=== PATIENT | male | born 1960 | race Two or more races ===

== ENCOUNTER 2020-09-11 14:34 | Inpatient (IN) | payer MEDICARE, OTHER ==
[~2020-09-11] VITALS: Ht 180.3 cm; Wt 86.4 kg
[2020-09-11] MEDS ORDERED: LORazepam 2MG/ML-1ML VIAL ONE (15:15)
[2020-09-11] MEDS ORDERED: SODIUM CHLORIDE 0.9% 1,000 ML IVB ONE (15:30)
[2020-09-11 17:01] LABS: Basophils # (auto) 0 10 ^3/uL (0-0.2); Basophils % (auto) 0.3 % (0.0-2.0); Eosinophils # (auto) 0 10 ^3/uL (0-0.8); Hematocrit 42.6 % (41.0-53.0); Hemoglobin 14.8 g/dL (13.5-17.5); Lymphocytes # (auto) 0.7 10 ^3/uL (0.4-5.4); Lymphocytes % (auto) 11.7 % (10.0-50.0); Mean Corpuscular Hemoglobin 32.1 pg (28.0-32.0); Mean Corpuscular Hgb Conc. 34.7 g/dL (32.0-36.0); Mean Corpuscular Volume 92.4 fL (80.0-100.0); Monocytes # (auto) 0.4 10 ^3/uL (0-1.3); Monocytes % (auto) 6.6 % (0.0-12.0); Neutrophils # (auto) 4.7 10 ^3/uL (1.6-8.6); Neutrophils % (auto) 81.4 % (37.0-80.0); Nucleated Red Blood Cells % 0.1 %; Platelet Count (auto) 121 10^3/uL (140-450); Red Blood Cells 4.61 10^6/uL (4.5-5.90); Red Cell Distribution Width 12.2 % (11.8-14.3); White Blood Cell 5.8 10^3/uL (4.4-10.8)
[2020-09-11 17:15] LABS: INR 0.96 (0.9-1.15); Partial Thromboplastin Time 29.6 sec (23.0-31.2)
[2020-09-11] MEDS ORDERED: ACETAMINOPHEN 500 MG TAB PO ONE (17:18)
[2020-09-11 17:21] LABS: Calcium 8.5 mg/dL (8.5-10.1); Chloride 105 mmol/L (98-107); Potassium 3.9 mmol/L (3.5-5.1); Sodium 137 mmol/L (136-145)
[2020-09-11 17:38] LABS: Alanine Aminotransferase 35 U/L (16-61); Albumin 3.8 g/dL (3.4-5.0); Alkaline Phosphatase 107 U/L (45-117); Anion Gap 4 (5-15); Aspartate Aminotransferase 29 U/L (15-37); BUN/Creatinine Ratio 8.1; Bilirubin, Total 0.9 mg/dL (0.2-1.0); Blood Urea Nitrogen 10 mg/dL (7-18); Carbon Dioxide 28 mmol/L (21-32); GFR African American 77 mL/min; GFR Non-African American 64 mL/min; Glucose 142 mg/dL (74-106); Total Protein 8.1 g/dL (6.4-8.2)
[2020-09-11] MEDS ORDERED: ONDANSETRON HCL 4 MG/2 ML VIAL ONE (18:42)
[2020-09-11] MEDS ORDERED: ONDANSETRON HCL 4 MG/2 ML VIAL IV PRN (19:30)
[2020-09-11] MEDS ORDERED: NITROGLYCERIN 0.4 MG SL TAB SL PRN (19:30)
[2020-09-11] MEDS ORDERED: LORazepam 2MG/ML-1ML VIAL IV PRN (19:30)
[2020-09-11] MEDS ORDERED: MORPHINE SULF INJ 2 MG/ML SYRINGE 1ML IV PRN (19:30)
[2020-09-11 20:46] LABS: CRP High Sensitivity 1.05 mg/dL (< 0.3)
[2020-09-11] MEDS: ACETAMINOPHEN 325 MG TAB PO PRN (20:51)
[2020-09-11 21:18] VITALS: BP 117/79
[2020-09-11] MEDS: ENOXAPARIN SOD 40 MG/0.4 ML SYRINGE SC SCH (22:36)
[2020-09-11 22:48] LABS: Amphetamine Screen, Urine NEGATIVE (NEGATIVE); Barbiturate Scree,Urine NEGATIVE (NEGATIVE); Benzodiazephine Screen, Urine NEGATIVE (NEGATIVE); Cannabinoid Screen, Urine NEGATIVE (NEGATIVE); Cocaine Screen, Urine NEGATIVE (NEGATIVE); Opiate Scree,Urine NEGATIVE (NEGATIVE); Phencyclidine Screen, Urine NEGATIVE (NEGATIVE)
[2020-09-11 23:01] LABS: Urine Bacteria FEW /hpf (None Seen); Urine Blood TRACE /uL (Negative); Urine Specific Gravity 1.007 (1.001-1.035); Urine WBC 1 /hpf (0 - 3)
[2020-09-11] MEDS ORDERED: DEXT1SYP9 PO (23:03)
[2020-09-11] MEDS ORDERED: CHOL20007 PO (23:03)
[2020-09-11] MEDS ORDERED: ZINC220C8 PO (23:03)
[2020-09-12] MEDS: ACETAMINOPHEN 325 MG TAB PO PRN (04:48)
[2020-09-12 08:00] VITALS: BP 118/83
[2020-09-12] MEDS ORDERED: IVERMECTIN 3 MG TAB PO ONE (10:00)
[2020-09-12] MEDS: ENOXAPARIN SOD 40 MG/0.4 ML SYRINGE SC SCH ×2 (11:18→21:55)
[2020-09-12] MEDS: FAMOTIDINE 20 MG TAB PO SCH (11:18)
[2020-09-12] MEDS: CHOLECALCIFEROL (VITD3) 2,000 UNIT CAP PO SCH (11:19)
[2020-09-12] MEDS: ASCORBIC ACID 1,000 MG TAB PO SCH (11:19)
[2020-09-12] MEDS: ZINC SULFATE 220mg CAP or TAB PO SCH (11:19)
[2020-09-12] MEDS ORDERED: REMDESIVIR PER PHARMACY 0 ML IV SCH (14:15)
[2020-09-12] MEDS ORDERED: DexAMETHasone SOD PHOS 10MG/1ML VIAL INJ IV ONE (14:15)
[2020-09-12 16:00] VITALS: BP 113/79
[2020-09-12] MEDS ORDERED: REMDESIVIR 200 MG in NS 210ml LOADING DOSE ADULT IV ONE (18:00)
[2020-09-12] MEDS ORDERED: BUDESONIDE (INHALATION) 0.5 MG/2 ML NEB NEB SCH (22:00)
[2020-09-13] VITALS: BP 118/79
[2020-09-13] MEDS: BUDESONIDE (INHALATION) 180 MCG IH IN SCH ×2 (01:15→10:00)
[2020-09-13 06:38] LABS: Basophils # (auto) 0 10 ^3/uL (0-0.2); Basophils % (auto) 0.1 % (0.0-2.0); Eosinophils # (auto) 0 10 ^3/uL (0-0.8); Hematocrit 39.9 % (41.0-53.0); Hemoglobin 13.8 g/dL (13.5-17.5); Lymphocytes # (auto) 0.7 10 ^3/uL (0.4-5.4); Lymphocytes % (auto) 5.2 % (10.0-50.0); Mean Corpuscular Hemoglobin 32.3 pg (28.0-32.0); Mean Corpuscular Hgb Conc. 34.5 g/dL (32.0-36.0); Mean Corpuscular Volume 93.7 fL (80.0-100.0); Monocytes # (auto) 0.4 10 ^3/uL (0-1.3); Monocytes % (auto) 2.8 % (0.0-12.0); Neutrophils % (auto) 91.9 % (37.0-80.0); Platelet Count (auto) 137 10^3/uL (140-450); Red Blood Cells 4.25 10^6/uL (4.5-5.90); Red Cell Distribution Width 12.5 % (11.8-14.3); White Blood Cell 14.1 10^3/uL (4.4-10.8)
[2020-09-13 06:58] LABS: Albumin 2.9 g/dL (3.4-5.0); Potassium 4.6 mmol/L (3.5-5.1)
[2020-09-13 07:07] LABS: BUN/Creatinine Ratio 12.4; Bilirubin, Total 0.8 mg/dL (0.2-1.0); Calcium 8.6 mg/dL (8.5-10.1); Total Protein 7.5 g/dL (6.4-8.2)
[2020-09-13 07:30] VITALS: BP 116/71
[2020-09-13] MEDS: DexAMETHasone SOD PHOS 10MG/1ML VIAL INJ IV SCH (10:57)
[2020-09-13] MEDS: FAMOTIDINE 20 MG TAB PO SCH (10:58)
[2020-09-13] MEDS: CHOLECALCIFEROL (VITD3) 2,000 UNIT CAP PO SCH (10:58)
[2020-09-13] MEDS: ASCORBIC ACID 1,000 MG TAB PO SCH (10:58)
[2020-09-13] MEDS: ZINC SULFATE 220mg CAP or TAB PO SCH (11:03)
[2020-09-13] MEDS: ENOXAPARIN SOD 40 MG/0.4 ML SYRINGE SC SCH ×2 (11:06→22:05)
[2020-09-13] MEDS ORDERED: DEXTROSE (50%) 50ML SYRG IV PRN (13:45)
[2020-09-13] MEDS: ACCU-CHEK COMFORT CURVE STRIP VI SCH ×3 (14:00→22:03)
[2020-09-13 15:52] VITALS: BP 114/77
[2020-09-13] MEDS: REMDESIVIR 100mg 100 MG in SODIUM CHL 0.9% 230 ML IV SCH (16:10)
[2020-09-13] MEDS ORDERED: ACCU-CHEK COMFORT CURVE STRIP VI SCH (17:00)
[2020-09-14 00:14] VITALS: BP 113/75
[2020-09-14] MEDS: ACCU-CHEK COMFORT CURVE STRIP VI SCH ×2 (05:46→10:59)
[2020-09-14 08:00] VITALS: BP 123/80
[2020-09-14 08:24] LABS: Basophils # (auto) 0 10 ^3/uL (0-0.2); Basophils % (auto) 0.1 % (0.0-2.0); Eosinophils # (auto) 0 10 ^3/uL (0-0.8); Hematocrit 41.1 % (41.0-53.0); Hemoglobin 13.8 g/dL (13.5-17.5); Lymphocytes # (auto) 0.5 10 ^3/uL (0.4-5.4); Lymphocytes % (auto) 4.5 % (10.0-50.0); Mean Corpuscular Hemoglobin 31.1 pg (28.0-32.0); Mean Corpuscular Hgb Conc. 33.5 g/dL (32.0-36.0); Mean Corpuscular Volume 92.9 fL (80.0-100.0); Monocytes # (auto) 0.7 10 ^3/uL (0-1.3); Monocytes % (auto) 5.8 % (0.0-12.0); Neutrophils # (auto) 10.6 10 ^3/uL (1.6-8.6); Neutrophils % (auto) 89.6 % (37.0-80.0); Nucleated Red Blood Cells % 0.2 %; Platelet Count (auto) 164 10^3/uL (140-450); Red Blood Cells 4.43 10^6/uL (4.5-5.90); Red Cell Distribution Width 12.4 % (11.8-14.3); White Blood Cell 11.9 10^3/uL (4.4-10.8)
[2020-09-14 08:38] LABS: Potassium 4.5 mmol/L (3.5-5.1)
[2020-09-14 08:48] LABS: Albumin 3.2 g/dL (3.4-5.0); BUN/Creatinine Ratio 17.3; Bilirubin, Total 0.9 mg/dL (0.2-1.0); Calcium 8.9 mg/dL (8.5-10.1)
[2020-09-14] MEDS: ZINC SULFATE 220mg CAP or TAB PO SCH (09:06)
[2020-09-14] MEDS: FAMOTIDINE 20 MG TAB PO SCH (09:06)
[2020-09-14] MEDS: DexAMETHasone SOD PHOS 10MG/1ML VIAL INJ IV SCH (09:06)
[2020-09-14] MEDS: CHOLECALCIFEROL (VITD3) 2,000 UNIT CAP PO SCH (09:07)
[2020-09-14] MEDS: ENOXAPARIN SOD 40 MG/0.4 ML SYRINGE SC SCH ×2 (09:07→20:53)
[2020-09-14] MEDS: ASCORBIC ACID 1,000 MG TAB PO SCH (09:07)
[2020-09-14] MEDS: BUDESONIDE (INHALATION) 180 MCG IH IN SCH ×2 (10:00→22:56)
[2020-09-14 15:00] VITALS: BP 120/75
[2020-09-14] MEDS: REMDESIVIR 100mg 100 MG in SODIUM CHL 0.9% 230 ML IV SCH (15:00)
[2020-09-14 15:15] VITALS: BP 131/61
[2020-09-14 16:00] VITALS: BP 121/73
[2020-09-15] VITALS: BP 112/63
[2020-09-15 06:31] LABS: Potassium 4.8 mmol/L (3.5-5.1)
[2020-09-15 06:38] LABS: Albumin 2.9 g/dL (3.4-5.0); BUN/Creatinine Ratio 19.1; Bilirubin, Total 0.8 mg/dL (0.2-1.0); Calcium 8.8 mg/dL (8.5-10.1); Total Protein 7.6 g/dL (6.4-8.2)
[2020-09-15 08:00] VITALS: BP 121/77
[2020-09-15] MEDS: BUDESONIDE (INHALATION) 180 MCG IH IN SCH ×2 (08:40→20:15)
[2020-09-15] MEDS: CHOLECALCIFEROL (VITD3) 2,000 UNIT CAP PO SCH (09:54)
[2020-09-15] MEDS: ZINC SULFATE 220mg CAP or TAB PO SCH (09:54)
[2020-09-15] MEDS: FAMOTIDINE 20 MG TAB PO SCH (09:54)
[2020-09-15] MEDS: ASCORBIC ACID 1,000 MG TAB PO SCH (09:54)
[2020-09-15] MEDS: ENOXAPARIN SOD 40 MG/0.4 ML SYRINGE SC SCH ×2 (09:54→22:39)
[2020-09-15] MEDS: DexAMETHasone SOD PHOS 10MG/1ML VIAL INJ IV SCH (09:55)
[2020-09-15 16:00] VITALS: BP 122/89
[2020-09-15] MEDS ORDERED: METOCLOPRAMIDE HCL 10 MG TAB PO ONE ×2 (16:15→22:15)
[2020-09-15] MEDS: REMDESIVIR 100mg 100 MG in SODIUM CHL 0.9% 230 ML IV SCH (16:19)
[2020-09-16] VITALS: BP 104/70
[2020-09-16 05:56] LABS: Potassium 4.4 mmol/L (3.5-5.1)
[2020-09-16 06:10] LABS: Albumin 2.8 g/dL (3.4-5.0); BUN/Creatinine Ratio 25.2; Bilirubin, Total 0.6 mg/dL (0.2-1.0); Calcium 8.5 mg/dL (8.5-10.1); Total Protein 7.2 g/dL (6.4-8.2)
[2020-09-16 08:00] VITALS: BP 147/90
[2020-09-16] MEDS: BUDESONIDE (INHALATION) 180 MCG IH IN SCH (08:10)
[2020-09-16] MEDS: ASCORBIC ACID 1,000 MG TAB PO SCH (10:02)
[2020-09-16] MEDS: FAMOTIDINE 20 MG TAB PO SCH (10:02)
[2020-09-16] MEDS: ZINC SULFATE 220mg CAP or TAB PO SCH (10:02)
[2020-09-16] MEDS: DexAMETHasone SOD PHOS 10MG/1ML VIAL INJ IV SCH (10:03)
[2020-09-16] MEDS: ENOXAPARIN SOD 40 MG/0.4 ML SYRINGE SC SCH (10:03)
[2020-09-16] MEDS: CHOLECALCIFEROL (VITD3) 2,000 UNIT CAP PO SCH (10:03)
[2020-09-16] MEDS: REMDESIVIR 100mg 100 MG in SODIUM CHL 0.9% 230 ML IV SCH (14:15)
[2020-09-16 16:00] VITALS: BP 129/90
== END 2020-09-16 18:53 | disposition home or self-care (01) | DRG 177 ==
LOC: EDBD 14:34 → ER 14:34 → TELE 14:35 → TELE-WESTW 21:18
PROVIDERS: ADMIT Nurse Practitioner Acute Care; ATTEND Internal Medicine
PROC: XW033E5 Introduction of Remdesivir Anti-infective into Peripheral Vein, Percutaneous Approach, New Technology Group 5 (ICD-10-PCS; principal; 2020-09-12)
DX: U07.1 COVID-19 (principal); J12.82 Pneumonia due to coronavirus disease 2019; J96.01 Acute respiratory failure with hypoxia; D68.59 Other primary thrombophilia; D69.6 Thrombocytopenia, unspecified; R73.9 Hyperglycemia, unspecified; R55 Syncope and collapse; R56.9 Unspecified convulsions; I65.23 Occlusion and stenosis of bilateral carotid arteries; Z79.82 Long term (current) use of aspirin; Z82.49 Family history of ischemic heart disease and other diseases of the circulatory system
CPT/HCPCS: 36415; 70450; 71045; 80053; 80061; 80307; 81001; 82306; 82728; 82962; 83036; 83605; 83615; 83735; 84443; 84484; 85025; 85379; 85610; 85730; 86141; 87426; 93005; 93306; 93886; 94640; 95819; G0378; J1100; J2405